=== PATIENT | female | born 1970 | race African-American/Black ===

== ENCOUNTER 2023-02-18 14:12 | Emergency (ER) | payer MEDICAID ==
[~2023-02-18] VITALS: Ht 180.3 cm; Wt 93.0 kg
[2023-02-18 14:23] VITALS: O2SAT 100
[2023-02-18 17:12] VITALS: BP 128/54; PULSE 85; RESP 16; TEMP 98.7
== END 2023-02-18 17:13 | disposition home or self-care (01) ==
LOC: ER 14:12
DX: S61.311A Laceration without foreign body of left index finger with damage to nail, initial encounter (principal); W26.9XXA Contact with unspecified sharp object(s), initial encounter; Y93.89 Activity, other specified; Y92.89 Other specified places as the place of occurrence of the external cause; Y99.8 Other external cause status
CPT/HCPCS: 12001; 73140; 99283